=== PATIENT | female | born 1930 | race Hispanic/Latino ===

== ENCOUNTER → 2018-01-30 | Outpatient (CLI) | payer OTHER | END | disposition home or self-care (01) | LOC: RAH 10:17 | PROVIDERS: ATTEND Internal Medicine | DX: M19.041 Primary osteoarthritis, right hand (principal); R22.31 Localized swelling, mass and lump, right upper limb; M79.601 Pain in right arm | CPT/HCPCS: 73130 ==

== ENCOUNTER → 2018-08-16 | Outpatient (CLI) | payer OTHER | END | disposition home or self-care (01) | LOC: RAH 12:28 | PROVIDERS: ATTEND Internal Medicine | DX: S22.41XA Multiple fractures of ribs, right side, initial encounter for closed fracture (principal); M51.36 Other intervertebral disc degeneration, lumbar region; M41.86 Other forms of scoliosis, lumbar region; M16.11 Unilateral primary osteoarthritis, right hip; W19.XXXA Unspecified fall, initial encounter; Y93.89 Activity, other specified; Y92.89 Other specified places as the place of occurrence of the external cause; Y99.8 Other external cause status | CPT/HCPCS: 71100; 72100 ==

== ENCOUNTER → 2018-08-18 | Outpatient (CLI) | payer OTHER | END | disposition home or self-care (01) | LOC: RAH 10:31 | PROVIDERS: ATTEND Internal Medicine | DX: S22.31XA Fracture of one rib, right side, initial encounter for closed fracture (principal); I51.7 Cardiomegaly; Q25.46 Tortuous aortic arch; X58.XXXA Exposure to other specified factors, initial encounter; Y93.89 Activity, other specified; Y92.89 Other specified places as the place of occurrence of the external cause; Y99.8 Other external cause status | CPT/HCPCS: 71046; 71100 ==

== ENCOUNTER → 2020-04-28 | Outpatient (CLI) | payer OTHER | END | disposition home or self-care (01) | LOC: RAH 09:11 | PROVIDERS: ATTEND Internal Medicine | DX: K76.0 Fatty (change of) liver, not elsewhere classified (principal); N28.1 Cyst of kidney, acquired; R14.0 Abdominal distension (gaseous); Z90.49 Acquired absence of other specified parts of digestive tract | CPT/HCPCS: 76700 ==